=== PATIENT | female | born 1980 | race Caucasian/White ===

== ENCOUNTER 2019-03-14 12:36 | Emergency (ER) | payer OTHER ==
[~2019-03-14] VITALS: Ht 162.6 cm; Wt 58.1 kg
[2019-03-14 12:39] VITALS: Ht 162.6 cm; Wt 58.1 kg
[2019-03-14 16:53] LABS: AMPHETAMINE QUAL UR POSITIVE (See below)
[2019-03-14 18:11] VITALS: BP 119/71
== END 2019-03-14 18:11 | disposition home or self-care (01) ==
LOC: ED 12:36
PROVIDERS: Specialist
DX: F15.10 Other stimulant abuse, uncomplicated (principal); Z13.89 Encounter for screening for other disorder
CPT/HCPCS: 87491; 87591